=== PATIENT | male | born 1955 | race Caucasian/White ===

== ENCOUNTER 2018-03-19 14:46 | Inpatient (IN) | payer BC ==
[~2018-03-19] VITALS: Ht 190.5 cm; Wt 113.6 kg
[2018-03-19] MEDS ORDERED: REMERON30 MG PO (15:09)
[2018-03-19] MEDS ORDERED: PAXIL40 MG PO (15:09)
[2018-03-19] MEDS ORDERED: MULTI VITAMINS1 TAB PO (15:10)
[2018-03-19] MEDS ORDERED: ARICEPT10 MG PO (15:10)
[2018-03-19] MEDS ORDERED: NAMENDA 10MG TA10 MG PO (15:10)
[2018-03-19] MEDS ORDERED: KLONOPIN 1MG1 MG PO ×2 (15:11→15:12)
[2018-03-19] MEDS ORDERED: B-121000 MCG PO (15:11)
[2018-03-19] MEDS ORDERED: MELAT3MGTAB PO (15:13)
[2018-03-19] MEDS ORDERED: [UNRECOGNIZED DRUG - OTHER] TP (15:13)
[2018-03-19] MEDS ORDERED: EPA FISH OIL1 SGL PO (15:13)
[2018-03-19] MEDS ORDERED: TYLENOL 325MG325 MG PO (15:14)
[2018-03-19 15:19] LABS: BASO % 0.1 % (0.0-2.0); EOS % 0.3 % (0-4.0); GRAN # 9.8 (1.4-6.5); HEMATOCRIT 43.3 % (42.0-52.0); HEMOGLOBIN 14.6 g/dl (13.5-18.0); LYMPH # 2.2 (1.2-3.4); LYMPH % 15.8 % (20.0-51.0); MEAN CELL VOLUME 87 fl (80.0-100.0); MEAN CORPUSCULAR HEMOGLOBIN 29 pg (27.0-31.0); MEAN CORPUSCULAR HGB CONC 34 g/dl (33.0-37.0); MEAN PLATELET VOLUME 11.3 fl (7.4-10.4); MONO # 1.7 (0.1-0.6); MONO % 12.6 % (1.7-9.3); PLATELET COUNT 216 K/mm3 (130-400); RED BLOOD COUNT 4.99 M/mm3 (4.20-5.60); REDCELL DISTRIBUTION WIDTH-CV 13.7 % (11.5-14.5)
[2018-03-19 16:23] LABS: COLLECTION METHOD CLEAN CATCH
[2018-03-19 16:34] LABS: MUCOUS Present /lpf; PH 5 (5-8); SQUAMOUS EPITHELIAL 0-2 /hpf; URINE APPEARANCE Clear; URINE BACTERIA None Seen /hpf; URINE BILIRUBIN Negative (NEGATIVE); URINE BLOOD Negative (NEGATIVE); URINE COLOR Yellow; URINE GLUCOSE Negative (NEGATIVE); URINE KETONE Negative (NEGATIVE); URINE LEUKOCYTE ESTERASE Negative (NEGATIVE); URINE NITRATE Negative (NEGATIVE); URINE PROTEIN(semi-quant) Negative (NEGATIVE); URINE UROBILINOGEN Negative (NEGATIVE)
[2018-03-19 19:18] VITALS: BP 151/79; PULSE 77; TEMP 99.3
[2018-03-19 23:53] VITALS: BP 124/72; PULSE 80; TEMP 98.7
[2018-03-20 03:22] VITALS: BP 137/73; PULSE 68; TEMP 97.9
[2018-03-20 06:41] LABS: BASO % 0.4 % (0.0-2.0); EOS # 0.1 (0.0-0.7); GRAN # 6.2 (1.4-6.5); GRAN % 64.5 % (42.2-75.2); HEMATOCRIT 43.3 % (42.0-52.0); HEMOGLOBIN 14.4 g/dl (13.5-18.0); LYMPH # 2.1 (1.2-3.4); LYMPH % 21.3 % (20.0-51.0); MEAN CELL VOLUME 89 fl (80.0-100.0); MEAN CORPUSCULAR HEMOGLOBIN 30 pg (27.0-31.0); MEAN CORPUSCULAR HGB CONC 33 g/dl (33.0-37.0); MEAN PLATELET VOLUME 11.8 fl (7.4-10.4); MONO # 1.2 (0.1-0.6); MONO % 12.5 % (1.7-9.3); PLATELET COUNT 216 K/mm3 (130-400); RED BLOOD COUNT 4.87 M/mm3 (4.20-5.60); REDCELL DISTRIBUTION WIDTH-CV 13.9 % (11.5-14.5)
[2018-03-20 07:07] LABS: AMMONIA < 9 umol/L (11-35)
[2018-03-20 09:03] VITALS: BP 134/99; PULSE 72; TEMP 98.4
[2018-03-20 15:55] VITALS: BP 133/76; PULSE 85; TEMP 100.6
[2018-03-20 19:22] VITALS: BP 127/71; PULSE 90; TEMP 97.8
[2018-03-21 00:12] VITALS: BP 139/89; PULSE 76; TEMP 98.9
[2018-03-21 04:13] VITALS: BP 119/80; PULSE 75; TEMP 98.2
[2018-03-21 07:28] VITALS: BP 126/81; PULSE 82; TEMP 98.1
[2018-03-21 08:32] LABS: BASO # 0.1 (0.0-0.2); BASO % 0.6 % (0.0-2.0); EOS # 0.2 (0.0-0.7); EOS % 1.9 % (0-4.0); GRAN # 5.4 (1.4-6.5); GRAN % 60.1 % (42.2-75.2); HEMATOCRIT 43.2 % (42.0-52.0); HEMOGLOBIN 14.5 g/dl (13.5-18.0); LYMPH # 2.2 (1.2-3.4); LYMPH % 24.5 % (20.0-51.0); MEAN CELL VOLUME 89 fl (80.0-100.0); MEAN CORPUSCULAR HEMOGLOBIN 30 pg (27.0-31.0); MEAN CORPUSCULAR HGB CONC 34 g/dl (33.0-37.0); MEAN PLATELET VOLUME 11.8 fl (7.4-10.4); MONO # 1.1 (0.1-0.6); MONO % 12.5 % (1.7-9.3); PLATELET COUNT 212 K/mm3 (130-400); RED BLOOD COUNT 4.86 M/mm3 (4.20-5.60); REDCELL DISTRIBUTION WIDTH-CV 14.1 % (11.5-14.5)
[2018-03-21 08:42] LABS: CALCIUM 9.4 mg/dL (8.4-10.2); CREATININE, serum 0.87 mg/dL (0.66-1.25); POTASSIUM 4.1 mmol/L (3.4-5.0)
[2018-03-21 11:13] VITALS: BP 116/66; PULSE 71; TEMP 98.5
[2018-03-21 15:24] VITALS: BP 109/61; PULSE 100; TEMP 98.8
[2018-03-21 20:12] VITALS: BP 128/71; PULSE 90; TEMP 98.9
[2018-03-22] VITALS (7 sets, daily range): BP systolic 112–140; BP diastolic 50–76; PULSE 67–88; TEMP 98.1–98.7
[2018-03-22 06:51] LABS: CALCIUM 9.2 mg/dL (8.4-10.2); CREATININE, serum 0.76 mg/dL (0.66-1.25)
[2018-03-22 06:56] LABS: BASO # 0.1 (0.0-0.2); BASO % 0.7 % (0.0-2.0); EOS # 0.2 (0.0-0.7); GRAN # 4.5 (1.4-6.5); GRAN % 59.9 % (42.2-75.2); HEMATOCRIT 43.9 % (42.0-52.0); HEMOGLOBIN 14.4 g/dl (13.5-18.0); LYMPH # 1.8 (1.2-3.4); LYMPH % 23.1 % (20.0-51.0); MEAN CELL VOLUME 90 fl (80.0-100.0); MEAN CORPUSCULAR HEMOGLOBIN 29 pg (27.0-31.0); MEAN CORPUSCULAR HGB CONC 33 g/dl (33.0-37.0); MEAN PLATELET VOLUME 11.7 fl (7.4-10.4); MONO % 12.9 % (1.7-9.3); PLATELET COUNT 208 K/mm3 (130-400); RED BLOOD COUNT 4.89 M/mm3 (4.20-5.60); REDCELL DISTRIBUTION WIDTH-CV 14.1 % (11.5-14.5)
[2018-03-23 04:16] VITALS: BP 120/79; PULSE 83; TEMP 98.4
[2018-03-23 06:52] LABS: CALCIUM 9.2 mg/dL (8.4-10.2); CREATININE, serum 0.88 mg/dL (0.66-1.25); POTASSIUM 4.2 mmol/L (3.4-5.0)
[2018-03-23 07:17] VITALS: BP 137/93; PULSE 90; TEMP 98.2
[2018-03-23] MEDS ORDERED: ZITHROMAX500 M2 PO (08:03)
[2018-03-23] MEDS ORDERED: MUCINEX1200 MG PO (08:07)
[2018-03-23] MEDS ORDERED: KLONOPIN 1MG1 MG PO ×2 (08:07)
[2018-03-23] MEDS ORDERED: AMOXICILLIN 8751 TAB PO (10:06)
[2018-03-23 11:31] VITALS: BP 122/74; PULSE 103; TEMP 99.2
[2018-03-23] MEDS ORDERED: PROAIR HFA0.09 MG/AC IH (15:14)
[2018-03-23 15:49] VITALS: BP 101/80; PULSE 94; TEMP 99.8
== END 2018-03-23 16:30 | disposition home health service (06) | DRG 871 ==
LOC: COL.ER 14:46 → EDBD 14:47 → COL.ER 14:47 → MEDICAL 17:37 → COL.ER 17:40 → MEDICAL 23:59
PROVIDERS: Family Medicine; Hospitalist
DX: A41.9 Sepsis, unspecified organism (principal); J69.0 Pneumonitis due to inhalation of food and vomit; F02.81 Dementia in other diseases classified elsewhere, unspecified severity, with behavioral disturbance; Z66 Do not resuscitate; G31.09 Other frontotemporal neurocognitive disorder; S51.011A Laceration without foreign body of right elbow, initial encounter; W18.30XA Fall on same level, unspecified, initial encounter; R31.9 Hematuria, unspecified
CPT/HCPCS: 99223-AI; 99232-AI; 99233-AI; J0456; J0696; J1650; J7030; J7050; Q9967

== ENCOUNTER 2018-03-27 15:28 | Emergency (ER) | payer BC ==
[~2018-03-27] VITALS: Ht 190.5 cm; Wt 113.6 kg
[~2018-03-27 15:28] MED LIST: AMOXICILLIN 8751 TAB PO; ARICEPT10 MG PO; B-121000 MCG PO; EPA FISH OIL1 SGL PO; KLONOPIN 1MG1 MG PO; MELAT3MGTAB PO; MUCINEX1200 MG PO; MULTI VITAMINS1 TAB PO; NAMENDA 10MG TA10 MG PO; PAXIL40 MG PO; PROAIR HFA0.09 MG/AC IH; REMERON30 MG PO; TYLENOL 325MG325 MG PO; ZITHROMAX500 M2 PO; [UNRECOGNIZED DRUG - OTHER] TP
[2018-03-27 17:08] LABS: HEMATOCRIT 44.4 % (42.0-52.0); HEMOGLOBIN 14.7 g/dl (13.5-18.0); MEAN CELL VOLUME 89 fl (80.0-100.0); MEAN CORPUSCULAR HEMOGLOBIN 30 pg (27.0-31.0); MEAN CORPUSCULAR HGB CONC 33 g/dl (33.0-37.0); MEAN PLATELET VOLUME 11.5 fl (7.4-10.4); PLATELET COUNT 271 K/mm3 (130-400); RED BLOOD COUNT 4.99 M/mm3 (4.20-5.60); REDCELL DISTRIBUTION WIDTH-CV 14.1 % (11.5-14.5)
[2018-03-27 17:17] LABS: ALBUMIN 3.8 gm/dL (3.5-5.0); BILIRUBIN,TOTAL 0.3 mg/dL (0.0-1.0); C-REACTIVE PROTEIN 2.7 mg/dL (0.0-0.9); CALCIUM 9.5 mg/dL (8.4-10.2); CREATININE, serum 0.87 mg/dL (0.66-1.25); TOTAL PROTEIN 7.4 gm/dL (6.4-8.2)
[2018-03-27 17:41] LABS: BAND 5 % (0-10); LYMPHOCYTE 12 % (20.0-51.0); NEUTROPHILS 79 % (42.0-75.2); PLATELET ESTIMATE NORMAL (NORMAL)
[2018-03-27 18:05] VITALS: BP 131/86; PULSE 97; TEMP 98.9
== END 2018-03-27 17:59 | disposition home or self-care (01) ==
LOC: COL.ER 15:28
PROVIDERS: Family Medicine
DX: J18.9 Pneumonia, unspecified organism (principal)
CPT/HCPCS: J0696

== ENCOUNTER 2018-07-18 05:49 | Emergency (ER) | payer BC, MEDICARE ==
[~2018-07-18] VITALS: Ht 193 cm; Wt 100.0 kg
[2018-07-18 05:50] VITALS: BP 131/82; TEMP 98.8
[2018-07-18 06:41] LABS: COLLECTION METHOD CATHETER
[2018-07-18 06:45] LABS: BASO # 0.1 (0.0-0.2); BASO % 0.7 % (0.0-2.0); EOS # 0.2 (0.0-0.7); EOS % 2.3 % (0-4.0); GRAN # 4.4 (1.4-6.5); GRAN % 60.1 % (42.2-75.2); HEMATOCRIT 45.2 % (42.0-52.0); HEMOGLOBIN 15.1 g/dl (13.5-18.0); LYMPH # 1.9 (1.2-3.4); LYMPH % 25.9 % (20.0-51.0); MEAN CELL VOLUME 89 fl (80.0-100.0); MEAN CORPUSCULAR HEMOGLOBIN 30 pg (27.0-31.0); MEAN CORPUSCULAR HGB CONC 33 g/dl (33.0-37.0); MEAN PLATELET VOLUME 11.3 fl (7.4-10.4); MONO # 0.8 (0.1-0.6); MONO % 10.7 % (1.7-9.3); PLATELET COUNT 228 K/mm3 (130-400); RED BLOOD COUNT 5.11 M/mm3 (4.20-5.60); REDCELL DISTRIBUTION WIDTH-CV 13.4 % (11.5-14.5)
[2018-07-18 06:48] LABS: MUCOUS Present /lpf; PH 5 (5-8); SQUAMOUS EPITHELIAL None Seen /hpf; URINE APPEARANCE Clear; URINE BACTERIA None Seen /hpf; URINE BILIRUBIN Negative (NEGATIVE); URINE BLOOD Negative (NEGATIVE); URINE COLOR Yellow; URINE GLUCOSE Negative (NEGATIVE); URINE KETONE Negative (NEGATIVE); URINE LEUKOCYTE ESTERASE Negative (NEGATIVE); URINE NITRATE Negative (NEGATIVE); URINE PROTEIN(semi-quant) Negative (NEGATIVE); URINE RBC 0-2 /hpf; URINE UROBILINOGEN Negative (NEGATIVE)
[2018-07-18 07:01] LABS: ALBUMIN 3.9 gm/dL (3.5-5.0); BILIRUBIN,TOTAL 0.5 mg/dL (0.0-1.0); CALCIUM 9.5 mg/dL (8.4-10.2); CREATININE, serum 0.92 mg/dL (0.66-1.25); POTASSIUM 4.6 mmol/L (3.4-5.0); TOTAL PROTEIN 7.3 gm/dL (6.4-8.2)
[2018-07-18] MEDS ORDERED: FLOMAX 0.40.4 MG/CAP PO (07:35)
[2018-07-18 07:52] VITALS: PULSE 71
== END 2018-07-18 07:53 ==
LOC: COL.ER 05:49
PROVIDERS: Emergency Medicine
DX: R33.9 Retention of urine, unspecified (principal); F03.90 Unspecified dementia, unspecified severity, without behavioral disturbance, psychotic disturbance, mood disturbance, and anxiety

== ENCOUNTER → 2018-09-18 | Outpatient (CLI) | payer MEDICARE ==
[~2018-09-18] MED LIST changes: +FLOMAX 0.40.4 MG/CAP PO
== END ==
LOC: COL.RAD 08:01
DX: J98.6 Disorders of diaphragm (principal); R19.01 Right upper quadrant abdominal swelling, mass and lump

== ENCOUNTER → 2018-10-17 | Outpatient (CLI) | payer BC, MEDICARE ==
[2018-10-17 15:36] LABS: BASO # 0.1 (0.0-0.2); BASO % 0.7 % (0.0-2.0); EOS # 0.2 (0.0-0.7); EOS % 2.3 % (0-4.0); GRAN # 5.8 (1.4-6.5); GRAN % 62.9 % (42.2-75.2); HEMATOCRIT 47.3 % (42.0-52.0); HEMOGLOBIN 15.3 g/dl (13.5-18.0); LYMPH # 2.1 (1.2-3.4); LYMPH % 22.8 % (20.0-51.0); MEAN CELL VOLUME 88 fl (80.0-100.0); MEAN CORPUSCULAR HEMOGLOBIN 28 pg (27.0-31.0); MEAN CORPUSCULAR HGB CONC 32 g/dl (33.0-37.0); MEAN PLATELET VOLUME 13.2 fl (7.4-10.4); MONO % 11.1 % (1.7-9.3); PLATELET COUNT 225 K/mm3 (130-400); RED BLOOD COUNT 5.38 M/mm3 (4.20-5.60); REDCELL DISTRIBUTION WIDTH-CV 14.2 % (11.5-14.5)
[2018-10-17 15:39] LABS: CALCIUM 9.4 mg/dL (8.4-10.2); CREATININE, serum 0.74 mg/dL (0.66-1.25); POTASSIUM 4.4 mmol/L (3.4-5.0)
== END ==
LOC: ZCOL.LAB 15:04
PROVIDERS: Family Medicine
DX: G31.09 Other frontotemporal neurocognitive disorder (principal); F02.80 Dementia in other diseases classified elsewhere, unspecified severity, without behavioral disturbance, psychotic disturbance, mood disturbance, and anxiety; R33.9 Retention of urine, unspecified; D51.9 Vitamin B12 deficiency anemia, unspecified